=== PATIENT | male | born 1950 | race Caucasian/White ===

== ENCOUNTER 2020-02-14 06:38 | Day surgery (SDC) | payer MEDICARE ==
[2020-02-12 14:41] VITALS: BMI 32.5
[~2020-02-14 06:38] MED LIST: LACTATED RINGERS 1,000 ML IV SCH
[2020-02-14 07:05] VITALS: RESP 16; TEMP 97.5
[2020-02-14 07:18] LABS: Glucose,Whole Blood 122 mg/dL (75-99)
[2020-02-14] MEDS ORDERED: LIDOCAINE 1% (10MG/ML) FOR IV START INTRADERMA ONE (07:18)
[2020-02-14] MEDS ORDERED: PROPOFOL 10 MG/ML 20 ML VIAL IV ONE (07:30)
--- NOTE | 2020-02-14 08:19 | P.PCN ---
Date of Procedure: 02/14/20 Description of Procedure: Brief history: Patient is a pleasant 61-year-old male presenting for outpatient EGD and colonoscopy for evaluation of anemia and positive Cologard. No prior colonoscopy or EGD reported. No signs or symptoms of GI bleeding. Patient developed Cologard testing which was positive. No family history of colon cancer. Procedure performed: Esophagogastroduodenoscopy with biopsy Colonoscopy with polypectomy Estimated blood loss: Minimal. Preoperative diagnosis: Anemia, positive Cologard, no prior colonoscopy Anesthesia: [facility] [place] Procedure: After informed consent was obtained from the patient was brought into the endoscopy unit and IV sedation was administered by anesthesia under continuous monitoring. Initially upper endoscopy was done. The Olympus GF 190 video endoscope was inserted into the mouth and esophagus intubated without any difficulty and was gradually advanced into the stomach and duodenum and carefully examined. The bulb and second part of the duodenum appeared normal, with biopsies taken. The scope was then withdrawn into the stomach adequately insufflated with air and upon careful examination the antrum and body, cardia and fundus appeared normal, except for some mild scattered erythema in the antrum and body suggestive of mild gastritis. The scope was then withdrawn into the esophagus. The GE junction was located at 41 cm to the incisors, with a 1 cm hiatal hernia noted. It appeared regular with no erythema erosions or ulcerations. Rest of the esophagus appeared normal. Patient tolerated the procedure well. At this time the patient continued to remain sedation. Initial digital rectal examination was normal. Olympus CF 190 video colonoscope was then inserted into the rectum and gradually advanced to the cecum without any difficulty. Careful examination was performed as the scope was gradually being withdrawn. The prep was excellent. The cecum, ascending colon, transverse colon, descending colon, sigmoid colon and rectum appeared normal. A diminutive sessile colon polyps measuring 2-3 mm removed with cold forcep polypectomy one from the ascending colon, one from the transverse colon, 2 from the descending colon and 2 from the sigmoid colon. Retroflexion was performed in the rectum and no lesions were noted, low-grade internal hemorrhoids. Patient tolerated the procedure well. Impression: 1. Mild gastritis. Biopsies taken of the duodenum and antrum and body. 2. 6 diminutive colon polyps removed with cold forcep polypectomy (1 from the ascending colon, one from the transverse colon, 2 from the descending colon into the sigmoid colon). Low-grade internal hemorrhoids. Recommendations: Findings of this examination were discussed with the patient as well as his friend. Okay to resume diet. Okay to resume medications. Await pathology from biopsies and polypectomy. Would recommend repeat colonoscopy in 3 years pending pathology from polypectomy.
[2020-02-14 09:03] VITALS: BP 115/68; PULSE 57
[2020-02-14 09:17] LABS: Glucose,Whole Blood 108 mg/dL (75-99)
== END 2020-02-14 09:13 | disposition home or self-care (01) ==
LOC: ORWHC2ENDO 06:38
PROVIDERS: ATTEND Internal Medicine
DX: D12.2 Benign neoplasm of ascending colon (principal); D12.3 Benign neoplasm of transverse colon; D12.4 Benign neoplasm of descending colon; D12.5 Benign neoplasm of sigmoid colon; D64.9 Anemia, unspecified; K64.8 Other hemorrhoids; K29.50 Unspecified chronic gastritis without bleeding; I10 Essential (primary) hypertension; E78.5 Hyperlipidemia, unspecified; Z95.1 Presence of aortocoronary bypass graft; E11.9 Type 2 diabetes mellitus without complications; H40.9 Unspecified glaucoma; M79.7 Fibromyalgia; Z79.899 Other long term (current) drug therapy; Z79.82 Long term (current) use of aspirin; Z79.4 Long term (current) use of insulin; Z79.891 Long term (current) use of opiate analgesic; Z87.891 Personal history of nicotine dependence; Z88.6 Allergy status to analgesic agent; Z98.890 Other specified postprocedural states
CPT/HCPCS: 88305; 45380; 43239; J2704